=== PATIENT | male | born 1990 | race Caucasian/White ===

== ENCOUNTER 2017-04-30 00:32 | Emergency (ER) | payer SELFPAY ==
[~2017-04-30] VITALS: Ht 175.3 cm; Wt 75.0 kg
[2017-04-30 01:03] VITALS: BP 125/84
== END 2017-04-30 03:00 | disposition left against medical advice (07) ==
LOC: ER 00:32
DX: S09.90XA Unspecified injury of head, initial encounter (principal); Z53.21 Procedure and treatment not carried out due to patient leaving prior to being seen by health care provider; X58.XXXA Exposure to other specified factors, initial encounter; Y93.89 Activity, other specified; Y92.89 Other specified places as the place of occurrence of the external cause; Y99.8 Other external cause status